=== PATIENT | male | born 1975 | race Two or more races ===

== ENCOUNTER 2023-11-20 20:27 | Inpatient (IN) | payer OTHER ==
[~2023-11-20] VITALS: Ht 167.6 cm; Wt 59.4 kg
[2023-11-20 21:47] LABS: BASOPHILS # (AUTO) 0.1 K/uL (0.0-0.2); BASOPHILS % (AUTO) 1.3 % (0.0-2.0); EOSINOPHILS # (AUTO) 0.2 K/uL (0.0-0.7); EOSINOPHILS % (AUTO) 2.3 % (0.0-6.0); HEMATOCRIT 38 % (39-51); HEMOGLOBIN 12.8 g/dL (13.5-17.5); LYMPHOCYTES % (AUTO) 11.3 % (20.0-44.0); MEAN CORPUSCULAR HEMOGLOBIN 31 PG (26.0-33.0); MEAN CORPUSCULAR HGB CONC 34 g/dl (31.0-36.0); MEAN CORPUSCULAR VOLUME 92 fL (80-96); MONOCYTES # (AUTO) 0.5 K/uL (0.1-1.30); MONOCYTES % (AUTO) 5.5 % (2.0-12.0); NEUTROPHILS # (AUTO) 6.9 K/uL (1.8-8.9); NEUTROPHILS % (AUTO) 79.6 % (43.0-81.0); PLATELET COUNT (AUTO) 245 K/uL (150-450); RED BLOOD CELL COUNT(AUTO) 4.14 MIL/uL (4.5-6.0); RED CELL DISTRIBUTION WIDTH 13.8 % (11.5-15.0); WHITE BLOOD COUNT (AUTO) 8.7 K/uL (4.3-11.0)
[2023-11-20 21:58] LABS: CALCIUM, SERUM 9.3 mg/dL (8.5-10.1); CARBON DIOXIDE 27 mmol/L (21-32); CHLORIDE 94 mmol/L (98-107); CREATININE 4.9 mg/dL (0.6-1.3); GLUCOSE 93 mg/dL (74-106); POTASSIUM 2.9 mmol/L (3.5-5.1); SODIUM SERUM 135 mmol/L (136-145); UREA NITROGEN, BLOOD 30 mg/dL (7-18)
[2023-11-20 22:04] LABS: ALANINE AMINOTRANSFERASE 46 U/L (12-78); ALBUMIN 3.6 g/dL (3.4-5.0); ALKALINE PHOSPHATASE 88 U/L (46-116); ASPARTATE AMINOTRANSFERASE 23 U/L (15-37); BILIRUBIN,DIRECT 0.2 mg/dL (0.0-0.2); BILIRUBIN,TOTAL 0.9 mg/dL (0.2-1.0); TOTAL PROTEIN, SERUM 7.4 g/dL (6.4-8.2)
[2023-11-20] MEDS ORDERED: POTASSIUM CHLORIDE 20 MEQ TAB.PRT.SR PO ONE ×2 (22:30→22:35)
[2023-11-21 01:30] VITALS: BP 168/100; TEMP 98.1; O2SAT 97
[2023-11-21] MEDS ORDERED: NITROGLYCERIN 0.4 MG/TAB BOTTLE SL PRN (02:00)
[2023-11-21] MEDS ORDERED: ACETAMINOPHEN 325 MG TABLET PO PRN (02:00)
[2023-11-21] MEDS ORDERED: ONDANSETRON HCL/PF 4 MG/2 ML VIAL IVP PRN (02:00)
[2023-11-21] MEDS ORDERED: Z GUARD REMEDY 4 OZ OINT TP PRN (02:00)
[2023-11-21] MEDS ORDERED: MAG HYDROX/AL HYDROX/SIMETH 30 ML UDC PO PRN (02:00)
[2023-11-21] MEDS ORDERED: ZOLPIDEM TARTRATE 5 MG TABLET PO PRN (02:00)
[2023-11-21] MEDS ORDERED: MAGNESIUM HYDROXIDE 30 ML UDC PO PRN (02:00)
[2023-11-21] MEDS ORDERED: MORPHINE SULFATE INJ 2 MG/ML DISP.SYRIN IV PRN (02:00)
[2023-11-21] MEDS ORDERED: LEVO150T8 PO (02:17)
[2023-11-21] MEDS ORDERED: NIFE60TA73 PO (02:17)
[2023-11-21] MEDS ORDERED: HYDR-4077 PO (02:17)
[2023-11-21 04:23] VITALS: BP 159/104; TEMP 98.6; O2SAT 97
[2023-11-21] MEDS ORDERED: hydrALAZINE HCL 50 MG TABLET PO SCH ×2 (05:00→13:00)
[2023-11-21 07:13] LABS: BASOPHILS # (AUTO) 0.1 K/uL (0.0-0.2); BASOPHILS % (AUTO) 1.9 % (0.0-2.0); EOSINOPHILS # (AUTO) 0.2 K/uL (0.0-0.7); EOSINOPHILS % (AUTO) 3.5 % (0.0-6.0); HEMATOCRIT 33 % (39-51); HEMOGLOBIN 11.1 g/dL (13.5-17.5); LYMPHOCYTES % (AUTO) 13.9 % (20.0-44.0); MEAN CORPUSCULAR HEMOGLOBIN 31 PG (26.0-33.0); MEAN CORPUSCULAR HGB CONC 34 g/dl (31.0-36.0); MEAN CORPUSCULAR VOLUME 92 fL (80-96); MONOCYTES # (AUTO) 0.8 K/uL (0.1-1.30); MONOCYTES % (AUTO) 11.2 % (2.0-12.0); NEUTROPHILS # (AUTO) 4.9 K/uL (1.8-8.9); NEUTROPHILS % (AUTO) 69.5 % (43.0-81.0); PLATELET COUNT (AUTO) 203 K/uL (150-450); RED BLOOD CELL COUNT(AUTO) 3.55 MIL/uL (4.5-6.0); RED CELL DISTRIBUTION WIDTH 13.8 % (11.5-15.0)
[2023-11-21 07:30] VITALS: BP 172/100; TEMP 98.4; O2SAT 98
[2023-11-21] MEDS ORDERED: HEPARIN INFUSION/D5W 500 ML IV PRN (07:30)
[2023-11-21] MEDS ORDERED: LEVOTHYROXINE SODIUM 75 MCG TABLET PO SCH (07:30)
[2023-11-21 07:35] LABS: CALCIUM, SERUM 9.1 mg/dL (8.5-10.1); MAGNESIUM 2.3 mg/dL (1.8-2.4); PHOSPHORUS 5.1 mg/dL (2.5-4.9); POTASSIUM 3.5 mmol/L (3.5-5.1)
[2023-11-21] MEDS: HEPARIN SODIUM, PORCINE 5000 UNITS/1 ML VIAL SQ ONE ×2 (08:30→08:53)
[2023-11-21] MEDS: ASPIRIN 81 MG TAB.CHEW PO SCH (08:48)
[2023-11-21] MEDS: PANTOPRAZOLE 40 MG TABLET.DR PO SCH (08:48)
[2023-11-21] MEDS: NIFEDIPINE XL 60 MG TAB.ER.24 PO SCH ×2 (08:51→17:00)
[2023-11-21] MEDS ORDERED: HEPARIN SODIUM, PORCINE 5000 UNITS/1 ML VIAL IV ONE (08:53)
[2023-11-21] MEDS ORDERED: HEPARIN SODIUM, PORCINE 5000 UNITS/1 ML VIAL SQ SCH (09:00)
[2023-11-21] MEDS ORDERED: ATORVASTATIN 40 MG TABLET PO SCH (09:00)
[2023-11-21] MEDS ORDERED: ASPIRIN EC 81 MG TABLET.DR PO SCH (09:00)
[2023-11-21] MEDS ORDERED: PANTOPRAZOLE 40 MG VIAL IV SCH (09:00)
[2023-11-21] MEDS ORDERED: Medication Not On Formulary EA (Levothyroxine Sodium 150 MCG) PO SCH (09:00)
[2023-11-21] MEDS ORDERED: HYDR100T27 PO (09:19)
[2023-11-21] MEDS ORDERED: ATOR20TA PO (09:19)
[2023-11-21] MEDS ORDERED: LEVO200T8 PO (09:19)
[2023-11-21] MEDS ORDERED: LABE200T5 PO (09:19)
[2023-11-21 09:27] LABS: INR 1.08 (0.91-1.10); PARTIAL THROMBOPLASTIN TIME 30.5 SEC (24.3-34.3); PROTHROMBIN TIME 11.4 SECS (9.2-11.1)
[2023-11-21 09:42] LABS: THYROID STIMULATING HORMONE 11.717 uIU/mL (0.358-3.74)
[2023-11-21] MEDS ORDERED: IOHEXOL-350 100 ML VIAL IV ONE (10:18)
[2023-11-21] MEDS ORDERED: IV NS 0.9% 250 ML IV ONE (10:18)
[2023-11-21] MEDS ORDERED: METOPROLOL TARTRATE 50 MG TABLET ONE (10:18)
[2023-11-21] MEDS ORDERED: CT SWABBABLE VALVE TRANS SET 1 EA INFUS.SET MC ONE (10:18)
[2023-11-21] MEDS ORDERED: NITROGLYCERIN 0.4 MG/TAB BOTTLE ONE (10:18)
[2023-11-21] MEDS ORDERED: METOPROLOL TARTRATE INJ 5 MG/5 ML AMPUL ONE (10:20)
[2023-11-21] MEDS: METOPROLOL TARTRATE INJ 5 MG/5 ML AMPUL IVP PRN ×4 (10:40→10:55)
[2023-11-21] MEDS ORDERED: NITROGLYCERIN 0.4 MG/TAB BOTTLE SL ONE (11:00)
[2023-11-21 12:00] VITALS: BP 168/107; TEMP 98.6; O2SAT 97
[2023-11-21] MEDS: METOPROLOL TARTRATE 50 MG TABLET PO SCH ×2 (12:13→18:00)
[2023-11-21] MEDS: hydrALAZINE HCL 50 MG TABLET PO SCH ×2 (12:28→17:00)
[2023-11-21 16:33] VITALS: BP 173/103; TEMP 98.1; O2SAT 96
[2023-11-21 17:52] LABS: INR 1.09 (0.91-1.10); PARTIAL THROMBOPLASTIN TIME 55.5 SEC (24.3-34.3); PROTHROMBIN TIME 11.5 SECS (9.2-11.1)
[2023-11-21 20:00] VITALS: BP 133/88; TEMP 98.1; O2SAT 97
[2023-11-22] VITALS: BP 163/105; TEMP 98.2; O2SAT 98
[2023-11-22] MEDS: METOPROLOL TARTRATE 50 MG TABLET PO SCH ×5 (00:59→23:06)
[2023-11-22] MEDS ORDERED: CLONIDINE HCL 0.1 MG TABLET PO PRN (03:30)
[2023-11-22 06:56] LABS: BASOPHILS # (AUTO) 0.1 K/uL (0.0-0.2); EOSINOPHILS # (AUTO) 0.2 K/uL (0.0-0.7); HEMATOCRIT 32 % (39-51); HEMOGLOBIN 10.8 g/dL (13.5-17.5); LYMPHOCYTES # (AUTO) 1.1 K/uL (0.8-4.8); LYMPHOCYTES % (AUTO) 18.2 % (20.0-44.0); MEAN CORPUSCULAR HEMOGLOBIN 31 PG (26.0-33.0); MEAN CORPUSCULAR HGB CONC 34 g/dl (31.0-36.0); MEAN CORPUSCULAR VOLUME 93 fL (80-96); MONOCYTES # (AUTO) 0.7 K/uL (0.1-1.30); MONOCYTES % (AUTO) 10.9 % (2.0-12.0); NEUTROPHILS # (AUTO) 3.9 K/uL (1.8-8.9); NEUTROPHILS % (AUTO) 64.9 % (43.0-81.0); PLATELET COUNT (AUTO) 181 K/uL (150-450); RED BLOOD CELL COUNT(AUTO) 3.47 MIL/uL (4.5-6.0); RED CELL DISTRIBUTION WIDTH 13.9 % (11.5-15.0); WHITE BLOOD COUNT (AUTO) 6.1 K/uL (4.3-11.0)
[2023-11-22 07:06] LABS: ALBUMIN 3.3 g/dL (3.4-5.0); BILIRUBIN,TOTAL 0.9 mg/dL (0.2-1.0); CALCIUM, SERUM 9.1 mg/dL (8.5-10.1); CREATININE 5.1 mg/dL (0.6-1.3); MAGNESIUM 2.1 mg/dL (1.8-2.4); PHOSPHORUS 4.5 mg/dL (2.5-4.9); POTASSIUM 3.9 mmol/L (3.5-5.1); TOTAL PROTEIN, SERUM 6.5 g/dL (6.4-8.2)
[2023-11-22 07:12] LABS: INR 1.11 (0.91-1.10); PARTIAL THROMBOPLASTIN TIME 53.7 SEC (24.3-34.3); PROTHROMBIN TIME 11.7 SECS (9.2-11.1)
[2023-11-22 07:30] VITALS: BP 176/107; TEMP 98.4; O2SAT 97
[2023-11-22 08:09] LABS: HEPATITIS B SURFACE AB Reactive (.)
[2023-11-22] MEDS: ASPIRIN 81 MG TAB.CHEW PO SCH (08:31)
[2023-11-22] MEDS: PANTOPRAZOLE 40 MG TABLET.DR PO SCH (08:32)
[2023-11-22] MEDS: NIFEDIPINE XL 60 MG TAB.ER.24 PO SCH ×2 (08:32→19:07)
[2023-11-22] MEDS: LEVOTHYROXINE SODIUM 100 MCG TABLET PO SCH (08:32)
[2023-11-22] MEDS: ATORVASTATIN 10 MG TABLET PO SCH (08:32)
[2023-11-22] MEDS: hydrALAZINE HCL 50 MG TABLET PO SCH ×4 (08:32→19:07)
[2023-11-22] MEDS: ISOSORBIDE DINITRATE (20MG) 20 MG TABLET PO SCH ×2 (09:58→19:07)
[2023-11-22 16:11] VITALS: BP 152/99; TEMP 99.1; O2SAT 98
[2023-11-23] MEDS: METOPROLOL TARTRATE 50 MG TABLET PO SCH ×2 (05:02→12:23)
[2023-11-23 07:00] VITALS: BP 146/99; TEMP 98.8; O2SAT 98
[2023-11-23 07:27] LABS: INR 1.03 (0.91-1.10); PARTIAL THROMBOPLASTIN TIME 30.5 SEC (24.3-34.3); PROTHROMBIN TIME 10.9 SECS (9.2-11.1)
[2023-11-23] MEDS: ISOSORBIDE DINITRATE (20MG) 20 MG TABLET PO SCH (08:27)
[2023-11-23] MEDS: ASPIRIN 81 MG TAB.CHEW PO SCH (08:27)
[2023-11-23] MEDS: LEVOTHYROXINE SODIUM 100 MCG TABLET PO SCH (08:27)
[2023-11-23] MEDS: hydrALAZINE HCL 50 MG TABLET PO SCH ×2 (08:27→12:23)
[2023-11-23] MEDS: NIFEDIPINE XL 60 MG TAB.ER.24 PO SCH (08:28)
[2023-11-23] MEDS: PANTOPRAZOLE 40 MG TABLET.DR PO SCH (08:28)
[2023-11-23] MEDS: ATORVASTATIN 10 MG TABLET PO SCH (08:28)
[2023-11-23] MEDS ORDERED: ASPI-1169 PO (09:53)
[2023-11-23 12:23] VITALS: BP 124/81
== END 2023-11-23 13:30 | disposition home or self-care (01) | DRG 190 ==
LOC: ER 20:29 → TELE 11-21 00:36 → MED 11-22 10:20
PROVIDERS: ADMIT Internal Medicine; ATTEND Internal Medicine
PROC: 5A1D70Z Performance of Urinary Filtration, Intermittent, Less than 6 Hours Per Day (ICD-10-PCS; principal; 2023-11-21)
DX: I25.10 Atherosclerotic heart disease of native coronary artery without angina pectoris (principal); I21.A1 Myocardial infarction type 2; I31.39 Other pericardial effusion (noninflammatory); I13.2 Hypertensive heart and chronic kidney disease with heart failure and with stage 5 chronic kidney disease, or end stage renal disease; I95.3 Hypotension of hemodialysis; N18.6 End stage renal disease; I50.9 Heart failure, unspecified; E87.6 Hypokalemia; I16.0 Hypertensive urgency; Z99.2 Dependence on renal dialysis; E03.9 Hypothyroidism, unspecified; Z79.899 Other long term (current) drug therapy; Z79.890 Hormone replacement therapy
CPT/HCPCS: 36415; 71045-TC; 75574; 80048-TC; 80053-TC; 80061-TC; 80076-TC; 83735-TC; 83880; 84100-TC; 84439-TC; 84443-TC; 84484-TC; 85025-TC; 85610-TC; 85730-TC; 86706; 87340; 90935-TC; 93307-TC; G0378; J1644; J3490; J7030; J7050; Q9967